=== PATIENT | female | born 1970 | race Caucasian/White ===

== ENCOUNTER 2020-02-05 09:40 | Inpatient (IN) | payer MEDICAID ==
[2020-01-29 16:53] LABS: BASOPHILS % (AUTO) 0.4 % (0-1); EOSINOPHILS # (AUTO) 0.1 X10'3 (0-0.9); EOSINOPHILS % (AUTO) 1.2 % (0-6); LYMPHOCYTES # (AUTO) 1.8 X10'3 (1.1-4.8); LYMPHOCYTES % (AUTO) 38.4 % (21-51); MEAN CORPUSCULAR HGB CONC 32.5 g/dL (33.0-36.5); MEAN CORPUSCULAR VOLUME 83.2 FL (78-98); MEAN PLATELET VOLUME 7.1 FL (7.4-10.4); MONOCYTES # (AUTO) 0.3 X10'3 (0-0.9); MONOCYTES % (AUTO) 5.3 % (2-12); NEUTROPHILS # (AUTO) 2.6 X10'3 (1.8-7.7); NEUTROPHILS % (AUTO) 54.7 % (42-75); PRE OP HEMATOCRIT 35.5 % (35.0-45.0); PRE OP HEMOGLOBIN 11.5 g/dL (12.0-16.0); PRE OP PLATELET COUNT 280 X10'3 (140-440); RED BLOOD COUNT 4.27 X10'6 (4.20-5.60); RED CELL DISTRIBUTION WIDTH 19.7 % (11.5-14.5)
[2020-01-29 17:01] LABS: PRE OP PROTIME 10.2 SECONDS (9.0-12.0)
[2020-01-29 17:03] LABS: ALBUMIN 3.6 G/DL (3.4-5.0); ALBUMIN/GLOBULIN RATIO 0.9 (1.1-1.5); ALKALINE PHOSPHATASE 97 IU/L (46-116); BLOOD UREA NITROGEN 6 MG/DL (7-18); BUN/CREATININE RATIO 8.1 (6.6-38.0); CALCIUM 9.1 MG/DL (8.5-10.1); CHLORIDE 100 MMOL/L (99-107); CREATININE 0.74 MG/DL (0.40-0.90); PRE OP ALT 37 U/L (30-65); PRE OP ANION GAP 10 (8-16); PRE OP AST 38 U/L (10-37); PRE OP BILIRUB, TOTAL 0.4 MG/DL (0.0-1.0); PRE OP GLUCOSE 80 MG/DL (70-104); PRE OP SODIUM 140 MMOL/L (135-145); TOTAL PROTEIN 7.6 G/DL (6.4-8.2); eGFR 83 ML/MIN
[2020-01-29 17:05] LABS: PRE OP POTASSIUM 3.2 MMOL/L (3.4-5.1)
[2020-01-29 18:27] LABS: ANISOCYTOSIS 2+; PLATELET ESTIMATE NORMAL
[2020-01-29 18:31] LABS: HYPOCHROMASIA 1+; SPHEROCYTES FEW
[2020-02-05] VITALS (17 sets, daily range): BP systolic 99–131; BP diastolic 64–86
[~2020-02-05] VITALS: Ht 180.3 cm; Wt 108.9 kg
[~2020-02-05 09:40] MED LIST: ACET-1025 PO; GABA300C PO; HYDROmorphone 1 mg/ml syringe IV PRN; HYDROmorphone inj. 0.5 MG/0.5 ML DISP.SYRIN IV PRN; SERT100T PO; TRAZ-256 PO; acetaminophen 325mg tablet PO PRN; aspirin 325mg tablet PO SCH; bisacodyl 10mg suppository rectal RC PRN; ceFAZolin 2gm in dextrose, iso 50 ML IV ONE; diphenhydrAMINE 25mg capsule PO PRN; famotidine 10mg tablet PO ONE; gabapentin 300mg capsule PO SCH; magnesium hydroxide 30ml (MOM) UD suspension PO PRN; multivitamins, therapeutics tablet PO SCH; non-formulary drug (Sertraline Hcl (Zoloft) 1 TAB) PO SCH; ondansetron/PF 4mg/2ml inj IV PRN; oxyCODONE/APAP 10/325mg tablet PO PRN; ringers solution, lacted 1,000 ML IV SCH
[2020-02-05] MEDS ORDERED: vancomycin 1,000mg inj ONE (11:39)
[2020-02-05] MEDS ORDERED: tranexamic acid 1gm/0.7% sal. 100 ML IV ONE ×2 (11:47→18:00)
[2020-02-05] MEDS ORDERED: ringers solution, lacted 1,000 ML IV SCH (11:50)
[2020-02-05] MEDS ORDERED: labetalol 20mg/4ml (5mg/ml) syringe IV PRN (11:50)
[2020-02-05] MEDS ORDERED: ROPIVAcaine 0.2%/PF PUMP/bolus 550 ML ADDCANAL SCH (11:50)
[2020-02-05] MEDS ORDERED: ondansetron/PF 4mg/2ml inj IV PRN (11:50)
[2020-02-05] MEDS ORDERED: morphine 4 MG/ML inj SYRINge IV PRN (11:50)
[2020-02-05] MEDS ORDERED: ROPIVAcaine 0.2% (10 MG/5 ML) BOLUS INJECTION ADDCANAL PRN (11:50)
[2020-02-05] MEDS ORDERED: hydrALAZINE 20mg/ml inj. IV PRN (11:50)
[2020-02-05] MEDS ORDERED: ROPIVAcaine inj 250 MG, ketorolac trometh inj. 30 MG, CloNIDine/PF inj 80 MCG, epiNEPHr... IU ONE ×5 (11:50)
[2020-02-05] MEDS ORDERED: morphine 2 MG/ML inj. syringe IV PRN (11:50)
[2020-02-05] MEDS ORDERED: fentaNYL/PF 50MCG/1 ML 2ML syringe IV PRN ×2 (11:50)
[2020-02-05] MEDS ORDERED: fentaNYL/PF 50MCG/1 ML 2ML syringe ONE (11:57)
[2020-02-05] MEDS ORDERED: MIDAZolam 1mg/ml 10ml vial ONE (11:57)
[2020-02-05] MEDS ORDERED: propofol inj 20 ML IV ONE ×3 (12:12)
[2020-02-05] MEDS ORDERED: ROPIVAcaine 0.5% (5mg/ml) 30ml vial ONE (12:31)
--- NOTE | 2020-02-05 13:45 | NUR ---
Received from OR via BED, accompanied by Anesthesiologist DR HARRIS and report given by Anesthesiolgist. PATIENT WAKING UP, NO S/S OF PAIN, V/S STABLE, NEUROVASCULAR CHECKS INTACT, 20G PIV LUE, SCD ON, ENEDELIA DRESSING TO LEFT KNEE CDI WITH COLD POWDER PACK AND ON Q BALL AT 4ML/HR. BLE ELEVATED .
[2020-02-05] MEDS: potassium cl 20mEq in 1/2 NS 1,000 ML IV SCH ×2 (14:45→15:59)
--- NOTE | 2020-02-05 14:55 | NUR ---
PATIENT SLEEPY BUT ORIENTED X4, DENIES PAIN, V/S STABLE, NEUROVASCULAR CHECKS INTACT, 20G PIV LUE, SCD ON, ENEDELIA DRESSING TO LEFT KNEE CDI WITH COLD POWDER PACK AND ON Q BALL AT 4ML/HR. BLE ELEVATE. PATIENT TAKEN TO 4024A WITH ALL BELONGINGS AND HOOKED UP TO MONITORS IN ROOM AND REPORT GIVEN TO [employer] ENGINEER WHO HAS TAKEN OVER PATIENT CARE.
[2020-02-05] MEDS: cefazolin/dext.iso 2gm/50ml 50 ML IV SCH (15:46)
[2020-02-05] MEDS: oxyCODONE/APAP 10/325mg tablet PO PRN ×2 (16:08→20:14)
--- NOTE | 2020-02-05 18:38 | NUR ---
Problems reprioritized. Patient report given, questions answered & plan of care reviewed with VISH Salazar.
--- NOTE | 2020-02-05 18:40 | NUR ---
Patient in room [facility] 4024. I have received report from Tania WAHL and had the opportunity to ask questions and assume patient care.
[2020-02-05] MEDS: ascorbic acid 500mg tablet PO SCH (20:13)
[2020-02-05] MEDS: gabapentin 300mg capsule PO SCH (20:13)
[2020-02-05] MEDS ORDERED: traZODone 50mg tablet PO SCH (21:00)
[2020-02-05] MEDS ORDERED: sennosides 8.6mg tablet PO SCH (21:00)
[2020-02-06] MEDS: cefazolin/dext.iso 2gm/50ml 50 ML IV SCH (00:58)
[2020-02-06] MEDS: oxyCODONE/APAP 10/325mg tablet PO PRN ×4 (00:58→14:07)
[2020-02-06 02:00] VITALS: BP 103/74
[2020-02-06 06:00] VITALS: BP 114/74
[2020-02-06 06:02] LABS: EOSINOPHILS % (AUTO) 0.1 % (0-6); HEMOGLOBIN 10.5 g/dl (12.0-16.0); NEUTROPHILS # (AUTO) 7.2 X10'3 (1.8-7.7); WHITE BLOOD COUNT 8.7 X10'3 (4.5-11.0)
[2020-02-06 06:06] LABS: BASOPHILS % (AUTO) 0.4 % (0-1); HEMATOCRIT 31.7 % (35.0-45.0); LYMPHOCYTES # (AUTO) 1.1 X10'3 (1.1-4.8); LYMPHOCYTES % (AUTO) 12.7 % (21-51); MEAN CORPUSCULAR HEMOGLOBIN 27.3 PG (27.0-31.0); MEAN CORPUSCULAR VOLUME 82.7 FL (78-98); MEAN PLATELET VOLUME 7.2 FL (7.4-10.4); MONOCYTES # (AUTO) 0.3 X10'3 (0-0.9); NEUTROPHILS % (AUTO) 82.8 % (42-75); PLATELET COUNT 272 X10'3 (140-440); RED BLOOD COUNT 3.83 X10'6 (4.20-5.60); RED CELL DISTRIBUTION WIDTH 18.4 % (11.5-14.5)
[2020-02-06 06:17] LABS: ANION GAP 7 (8-16); CHLORIDE 108 MMOL/L (99-107); POTASSIUM 4.2 MMOL/L (3.5-5.1); SODIUM 142 MMOL/L (135-145); TOTAL CARBON DIOXIDE 26.7 MMOL/L (24-32)
--- NOTE | 2020-02-06 06:45 | NUR ---
Problems reprioritized. Patient report given, questions answered & plan of care reviewed with Fela WAHL.
[2020-02-06] MEDS ORDERED: multivitamins, therapeutics tablet PO SCH (08:00)
[2020-02-06] MEDS ORDERED: sertraline 50mg tablet PO SCH (08:00)
[2020-02-06] MEDS: gabapentin 300mg capsule PO SCH ×2 (08:21→12:14)
[2020-02-06] MEDS: ascorbic acid 500mg tablet PO SCH (08:22)
[2020-02-06] MEDS ORDERED: celeCOXIB 100mg capsule PO SCH ×2 (08:30→20:00)
[2020-02-06] MEDS ORDERED: aspirin 325mg tablet PO SCH (08:30)
[2020-02-06 10:00] VITALS: BP 95/54
--- NOTE | 2020-02-06 11:06 | NUR ---
medication reassesment not done on previous shift
[2020-02-06] MEDS ORDERED: oxyCODONE IR 5mg (immed. release) tablet PO ONE (12:00)
[2020-02-06] MEDS: potassium cl 20mEq in 1/2 NS 1,000 ML IV SCH ×2 (12:01→14:45)
--- NOTE | 2020-02-06 14:11 | NUR ---
Joint replacement consult: Pt seen by MATILDE for written/verbal high protein ed w/ RD contact information provided. Pt reports no questions/concerns at this time. Will f/u 02/09 for initial assessment. Addendum: 02/06/20 at [address] Amended: Links added.
== END 2020-02-06 16:00 | disposition home or self-care (01) | DRG 302 ==
LOC: PAS 09:40 → ORTHO 4S 14:11 → UNDOADMOB 14:11 → ORTHO 4S 16:00 → OBSVTOIN 16:00 → UNDODISOB 02-06 16:00
PROVIDERS: ADMIT Orthopaedic Surgery; ATTEND Orthopaedic Surgery
PROC: 3E0T3BZ Introduction of Anesthetic Agent into Peripheral Nerves and Plexi, Percutaneous Approach (ICD-10-PCS; 2020-02-05)
PROC: 0SRD0J9 Replacement of Left Knee Joint with Synthetic Substitute, Cemented, Open Approach (ICD-10-PCS; principal; 2020-02-05 11:48)
DX: M17.12 Unilateral primary osteoarthritis, left knee (principal); Z87.891 Personal history of nicotine dependence; D50.0 Iron deficiency anemia secondary to blood loss (chronic)
CPT/HCPCS: 36415; 73560; 80051; 80053; 85008; 85025; 85610; 85730; 86885; 86900; 86901; 87081; 87635; 93005; 97110; 97116; 97161; A4215; A6454; A7000; C1713; C1776; G0378; J1170; J2250; J2704; J2795; J3010; J3370; J3480; J7120

== ENCOUNTER 2023-05-27 00:37 | Emergency (ER) | payer MEDICAID ==
[~2023-05-27] VITALS: Ht 180.3 cm; Wt 81.8 kg
[~2023-05-27 00:37] MED LIST changes: -HYDROmorphone 1 mg/ml syringe IV PRN; -HYDROmorphone inj. 0.5 MG/0.5 ML DISP.SYRIN IV PRN; -acetaminophen 325mg tablet PO PRN; -aspirin 325mg tablet PO SCH; -bisacodyl 10mg suppository rectal RC PRN; -ceFAZolin 2gm in dextrose, iso 50 ML IV ONE; -diphenhydrAMINE 25mg capsule PO PRN; -famotidine 10mg tablet PO ONE; -gabapentin 300mg capsule PO SCH; -magnesium hydroxide 30ml (MOM) UD suspension PO PRN; -multivitamins, therapeutics tablet PO SCH; -non-formulary drug (Sertraline Hcl (Zoloft) 1 TAB) PO SCH; -ondansetron/PF 4mg/2ml inj IV PRN; -oxyCODONE/APAP 10/325mg tablet PO PRN; -ringers solution, lacted 1,000 ML IV SCH
[2023-05-27 00:54] VITALS: TEMP 98.1
[2023-05-27 05:01] VITALS: BP 126/77; PULSE 105; RESP 16; O2SAT 98
== END 2023-05-27 05:02 | disposition home or self-care (01) ==
LOC: ER 00:38
DX: S00.12XA Contusion of left eyelid and periocular area, initial encounter (principal); S00.11XA Contusion of right eyelid and periocular area, initial encounter; F10.20 Alcohol dependence, uncomplicated; Z79.899 Other long term (current) drug therapy; W18.39XA Other fall on same level, initial encounter; Y93.89 Activity, other specified; Y92.89 Other specified places as the place of occurrence of the external cause; Y99.8 Other external cause status; Y90.0 Blood alcohol level of less than 20 mg/100 ml
CPT/HCPCS: 70450; 72125; 99284